=== PATIENT | female | born 1945 | race Two or more races ===

== ENCOUNTER 2018-03-12 09:42 | Emergency (ER) | payer OTHER ==
[~2018-03-12] VITALS: Ht 149.9 cm; Wt 66.2 kg
[2018-03-12] MEDS ORDERED: NORVASC2.5 MG (09:54)
[2018-03-12] MEDS ORDERED: SYNTHROID50 MCG (09:54)
== END 2018-03-12 11:44 | disposition home or self-care (01) ==
LOC: ER 09:42
DX: B02.8 Zoster with other complications (principal)

== ENCOUNTER 2019-09-22 11:03 | Outpatient (CLI) | payer OTHER ==
[~2019-09-22 11:03] MED LIST: NORVASC2.5 MG; SYNTHROID50 MCG
== END 2019-09-22 11:16 | disposition home or self-care (01) ==
LOC: RAD 11:03
PROVIDERS: ATTEND Orthopaedic Surgery
DX: M25.561 Pain in right knee (principal); M25.562 Pain in left knee

== ENCOUNTER 2019-10-11 10:20 | Outpatient (CLI) | payer OTHER | END 2019-10-11 10:37 | disposition home or self-care (01) | LOC: NUCLEAR 10:20 | PROVIDERS: ATTEND Orthopaedic Surgery | DX: M81.0 Age-related osteoporosis without current pathological fracture (principal) ==

== ENCOUNTER 2019-11-01 09:07 | Outpatient (CLI) | payer OTHER | END 2019-11-01 09:19 | disposition home or self-care (01) | LOC: LAB 09:07 | PROVIDERS: ATTEND Orthopaedic Surgery | DX: M85.88 Other specified disorders of bone density and structure, other site (principal); E88.89 Other specified metabolic disorders; E55.9 Vitamin D deficiency, unspecified; A69.20 Lyme disease, unspecified; M81.8 Other osteoporosis without current pathological fracture; E21.2 Other hyperparathyroidism; E56.1 Deficiency of vitamin K ==

== ENCOUNTER 2019-11-18 14:56 | Outpatient (CLI) | payer OTHER | END 2019-11-19 10:13 | disposition home or self-care (01) | LOC: RAD 14:56 | PROVIDERS: ATTEND Orthopaedic Surgery | DX: M17.0 Bilateral primary osteoarthritis of knee (principal); M22.12 Recurrent subluxation of patella, left knee; M22.11 Recurrent subluxation of patella, right knee; Z76.89 Persons encountering health services in other specified circumstances; R93.6 Abnormal findings on diagnostic imaging of limbs ==

== ENCOUNTER 2019-11-21 11:41 | Emergency (ER) | payer OTHER ==
[~2019-11-21] VITALS: Ht 152.4 cm; Wt 63.5 kg
[2019-11-21] MEDS ORDERED: ULTRACET PO (19:01)
== END 2019-11-21 19:18 | disposition home or self-care (01) ==
LOC: ER 11:41
DX: S82.491A Other fracture of shaft of right fibula, initial encounter for closed fracture (principal); S82.51XA Displaced fracture of medial malleolus of right tibia, initial encounter for closed fracture; S60.212A Contusion of left wrist, initial encounter; M79.642 Pain in left hand; M54.5 Low back pain; W01.198A Fall on same level from slipping, tripping and stumbling with subsequent striking against other object, initial encounter; Y93.89 Activity, other specified; Y92.018 Other place in single-family (private) house as the place of occurrence of the external cause; Y99.8 Other external cause status

== ENCOUNTER 2021-08-14 11:25 | Outpatient (CLI) | payer OTHER ==
[~2021-08-14 11:25] MED LIST changes: +ULTRACET PO
== END 2021-08-14 11:26 | disposition home or self-care (01) ==
LOC: RAD 11:25
PROVIDERS: ATTEND Orthopaedic Surgery
DX: M25.562 Pain in left knee (principal)

== ENCOUNTER → 2021-09-03 | Outpatient (CLI) | payer OTHER | END | disposition home or self-care (01) | LOC: MRI 09:14 | PROVIDERS: ATTEND Orthopaedic Surgery | DX: M25.562 Pain in left knee (principal) | CPT/HCPCS: 73721 ==